=== PATIENT | female | born 1990 | race Caucasian/White ===

== ENCOUNTER → 2018-04-20 14:45 | Outpatient (CLI) | payer OTHER, SELFPAY ==
[2018-04-20] MEDS: Dextrose 5%-Lactated Ringers 1,000 ML 999 ML IV (15:11)
[2018-04-20 15:12] VITALS: BP 108/68; PULSE 92; RESP 16; TEMP 36.2; O2SAT 100
[2018-04-20] MEDS: Ondansetron 4 MG/2 ML Vial IV (15:20)
[2018-04-20] MEDS: proMETHazine 25 MG/ML Syringe 12.5 MG IV (16:01)
== END ==
PROVIDERS: Family Provider Family Medicine; PCP Family Medicine; Referring Provider Nurse Practitioner Women's Health; Visit Provider Nurse Practitioner Women's Health
DX: E86.0 Dehydration (principal)
CPT/HCPCS: 96361; 96374; A4216; J2405

== ENCOUNTER → 2018-05-04 16:54 | Outpatient (CLI) | payer OTHER, SELFPAY ==
[2018-05-04 13:49] VITALS: BMI 26.9
[2018-05-04 20:04] LABS: Chlamydia Trachomatis by PCR Negative (Negative); Neisserai gonorrhoeae by PCR Negative (Negative); Probe Check PASS; Sample Adequacy Control PASS; Specimen Processing Control PASS
[2018-05-06 17:16] LABS: HPV Reflexed? NOT INDICATED
== END ==
PROVIDERS: Family Provider Family Medicine; PCP Family Medicine; Referring Provider Obstetrics & Gynecology; Visit Provider Obstetrics & Gynecology
DX: Z34.90 Encounter for supervision of normal pregnancy, unspecified, unspecified trimester (principal); Z12.4 Encounter for screening for malignant neoplasm of cervix
CPT/HCPCS: 87086; 87088; 87491; 87591; 87624; 88175; G0145

== ENCOUNTER → 2018-05-28 15:47 | Outpatient (CLI) | payer OTHER, SELFPAY ==
[2018-05-04 13:49] VITALS: BMI 26.9
== END ==
PROVIDERS: Family Provider Family Medicine; PCP Family Medicine; Referring Provider Nurse Practitioner Women's Health; Visit Provider Nurse Practitioner Women's Health
DX: N39.0 Urinary tract infection, site not specified (principal)
CPT/HCPCS: 87086; 87088

== ENCOUNTER → 2018-06-05 11:54 | Outpatient (CLI) | payer OTHER, SELFPAY ==
[2018-06-05 11:38] VITALS: BMI 26.9
[2018-06-05 12:58] LABS: Absolute Lymphocyte Count 1.43 X10^3/ul (0.83-4.51); Absolute Neutrophil Count 6.4 X10^3/uL (2.0-7.7); Basophil# 0.02 X10^3/uL; Basophil% 0.2 % (0-1); Eosinophils% 1.2 % (0-5); Hematocrit 36.2 % (37-47); Hemoglobin 12.1 g/dl (12.0-15.0); Lymphocyte # 1.43 X10^3/ul (4.0); Lymphocyte % 16.6 % (19-41); Mean Corp Hgb Conc 33.4 g/gl (32-36); Mean Corpuscular Hgb 29.8 pg (27.0-32.0); Mean Corpuscular Volume 89.2 fL (81-99); Monocyte# 0.69 X10^3/uL; Neutrophil # 6.36 X10^3/uL (2.7-7.7); Neutrophil % 73.7 % (47-70); Platelet Count 207 K/mm3 (150-450); RBC Distribution Width CV 13.8 % (11.6-14.6); RBC Distribution Width SD 45.2 fl (35.1-43.9); Red Blood Count 4.06 M/mm3 (4.2-5.4); White Blood Count 8.6 K/mm3 (4.4-11.0)
[2018-06-05 13:08] LABS: POSITIVE COUNT NO; POSITIVE DIFFERENTIAL NO; POSITIVE MORPHOLOGY NO
[2018-06-05 14:13] LABS: HIV - WCH Non-Reactive (Nonreactive); Rubella IgG 33.6 IU/mL
[2018-06-08 13:43] LABS: HEPATITIS B SURFACE AG Negative (Negative)
[2018-06-12 03:57] LABS: Rapid Plasmin Reagin (RPR) REACTIVE (NONREACTIVE)
== END ==
PROVIDERS: Family Provider Family Medicine; PCP Family Medicine; Referring Provider Obstetrics & Gynecology; Visit Provider Obstetrics & Gynecology
DX: Z34.90 Encounter for supervision of normal pregnancy, unspecified, unspecified trimester (principal)
CPT/HCPCS: 36415; 85025; 86592; 86703; 86762; 86850; 86900; 87340

== ENCOUNTER → 2018-06-22 16:53 | Outpatient (CLI) | payer OTHER, SELFPAY ==
[2018-06-05 11:38] VITALS: BMI 26.9
== END ==
PROVIDERS: Family Provider Family Medicine; PCP Family Medicine; Referring Provider Obstetrics & Gynecology; Visit Provider Obstetrics & Gynecology
DX: O28.9 Unspecified abnormal findings on antenatal screening of mother (principal)
CPT/HCPCS: 36415

== ENCOUNTER → 2018-07-20 | Outpatient (CLI) | payer OTHER, SELFPAY ==
[2018-07-02 14:04] VITALS: BMI 26.9
[2018-07-21 15:51] LABS: Treponema palladium Ab (FTA) Non Reactive (Non Reactive)
[2018-07-28 07:26] LABS: Rapid Plasmin Reagin (RPR) REACTIVE (NONREACTIVE)
== END | disposition home or self-care (01) ==
PROVIDERS: Family Provider Family Medicine; PCP Family Medicine; Referring Provider Obstetrics & Gynecology; Visit Provider Obstetrics & Gynecology
DX: O28.9 Unspecified abnormal findings on antenatal screening of mother (principal); Z3A.00 Weeks of gestation of pregnancy not specified
CPT/HCPCS: 36415; 86592; 86780

== ENCOUNTER 2018-08-14 08:49 | Outpatient (RCR) | payer OTHER, SELFPAY ==
[2018-07-02 14:04] VITALS: BMI 26.9
[2018-07-31 14:05] VITALS: BMI 26.9
== END 2018-08-14 23:59 | disposition home or self-care (01) ==
LOC: NS 08:49
PROVIDERS: Family Provider Family Medicine; PCP Family Medicine; Visit Provider Obstetrics & Gynecology
DX: O26.00 Excessive weight gain in pregnancy, unspecified trimester (principal)
CPT/HCPCS: 97802

== ENCOUNTER → 2018-09-16 | Outpatient (CLI) | payer OTHER, SELFPAY ==
[2018-09-16 14:45] VITALS: BMI 26.9
[2018-09-16 17:39] LABS: Absolute Lymphocyte Count 1.42 X10^3/ul (0.83-4.51); Absolute Neutrophil Count 8.2 X10^3/uL (2.0-7.7); Basophil# 0.01 X10^3/uL; Basophil% 0.1 % (0-1); Eosinophil# 0.07 X10^3/uL; Eosinophils% 0.7 % (0-5); Hemoglobin 10.7 g/dl (12.0-15.0); Lymphocyte # 1.42 X10^3/ul (4.0); Lymphocyte % 13.8 % (19-41); Mean Corp Hgb Conc 32.4 g/gl (32-36); Mean Corpuscular Hgb 27.8 pg (27.0-32.0); Mean Corpuscular Volume 85.7 fL (81-99); Mean Platelet Vol. 10.1 fl (6.2-12.0); Monocyte# 0.44 X10^3/uL; Monocyte% 4.3 % (0-10); Neutrophil # 8.23 X10^3/uL (2.7-7.7); Neutrophil % 80.2 % (47-70); Platelet Count 226 K/mm3 (150-450); RBC Distribution Width CV 14.4 % (11.6-14.6); RBC Distribution Width SD 45.2 fl (35.1-43.9); Red Blood Count 3.85 M/mm3 (4.2-5.4); White Blood Count 10.3 K/mm3 (4.4-11.0)
[2018-09-16 17:40] LABS: POSITIVE COUNT NO; POSITIVE DIFFERENTIAL NO; POSITIVE MORPHOLOGY NO
[2018-09-16 17:49] LABS: Glucose Challenge Gest 1H 50g 160 mg/dL (70-140)
[2018-09-20 13:56] LABS: Treponema palladium Ab (FTA) Non Reactive (Non Reactive)
== END | disposition home or self-care (01) ==
LOC: LAB 15:37
PROVIDERS: Family Provider Family Medicine; PCP Family Medicine; Referring Provider Nurse Practitioner Women's Health; Visit Provider Nurse Practitioner Women's Health
DX: Z34.90 Encounter for supervision of normal pregnancy, unspecified, unspecified trimester (principal); R76.8 Other specified abnormal immunological findings in serum
CPT/HCPCS: 36415; 82950; 85025; 86780

== ENCOUNTER → 2018-09-18 | Outpatient (CLI) | payer OTHER, SELFPAY ==
[2018-09-16 14:45] VITALS: BMI 26.9
[2018-09-18 10:56] LABS: Glucose GTT-Gestation. Fasting 79 mg/dL (<105)
[2018-09-18 13:02] LABS: Glucose GTT-Gestational 1 Hr 152 mg/dL (<190)
[2018-09-18 13:33] LABS: Glucose GTT-Gestational 2 Hr 173 mg/dL (<165)
[2018-09-18 15:12] LABS: Glucose GTT-Gestational 3 Hr 123 L (<145)
== END | disposition home or self-care (01) ==
LOC: LAB 09:58
PROVIDERS: Nurse Practitioner Women's Health; Family Provider Family Medicine; PCP Family Medicine; Referring Provider Obstetrics & Gynecology; Visit Provider Obstetrics & Gynecology
DX: O99.810 Abnormal glucose complicating pregnancy (principal); Z3A.00 Weeks of gestation of pregnancy not specified
CPT/HCPCS: 36415; 82951; 82952

== ENCOUNTER → 2018-11-20 11:19 | Outpatient (CLI) | payer OTHER, SELFPAY ==
[2018-11-20 10:27] VITALS: BMI 26.9
== END ==
PROVIDERS: Family Provider Family Medicine; PCP Family Medicine; Referring Provider Obstetrics & Gynecology; Visit Provider Obstetrics & Gynecology
DX: Z34.93 Encounter for supervision of normal pregnancy, unspecified, third trimester (principal); Z3A.36 36 weeks gestation of pregnancy
CPT/HCPCS: 87081

== ENCOUNTER → 2018-11-27 16:03 | Outpatient (CLI) | payer OTHER, SELFPAY ==
[2018-11-27 15:36] VITALS: BMI 26.9
[2018-11-27 17:12] LABS: Absolute Lymphocyte Count 1.24 X10^3/uL (0.83-4.51); Absolute Neutrophil Count 8.5 X10^3/uL (2.0-7.7); Basophil# 0.02 X10^3/uL; Basophil% 0.2 % (0-1); Eosinophil# 0.08 X10^3/uL; Eosinophils% 0.8 % (0-5); Hematocrit 31.3 % (37-47); Hemoglobin 9.7 g/dL (12.0-15.0); Lymphocyte # 1.24 X10^3/ul (4.0); Lymphocyte % 11.8 % (19-41); Mean Corpuscular Hgb 25.5 pg (27.0-32.0); Mean Corpuscular Volume 82.2 fL (81-99); Mean Platelet Vol. 10.7 fl (6.2-12.0); Monocyte# 0.44 X10^3/uL; Monocyte% 4.2 % (0-10); NRBC Flagged by Analyzer 0 % (0-5); Neutrophil # 8.49 X10^3/uL (2.7-7.7); Neutrophil % 80.9 % (47-70); Platelet Count 222 K/mm3 (150-450); RBC Distribution Width CV 16.1 % (11.6-14.6); RBC Distribution Width SD 48.2 fl (35.1-43.9); Red Blood Count 3.81 M/mm3 (4.2-5.4); White Blood Count 10.5 K/mm3 (4.4-11.0)
[2018-11-27 17:18] LABS: Protein, Urine (Random) 22.6 mg/dL (<11.9); Protein:Creat Ratio 246 mg/g CRE (0-200)
[2018-11-27 17:27] LABS: ALB/GLOB Ratio 0.7 RATIO (0.9-2.4); AST(SGOT) 15 U/L (15-37); Alanine Aminotransfer ALT/SGPT 14 U/L (13-56); Albumin, Serum 2.5 g/dL (3.2-5.0); Alkaline Phosphatase 151 U/L (45-117); Anion Gap 11 (5-15); BUN 6 mg/dL (7-18); BUN/Creat Ratio 8.2 RATIO (10-20); Calcium,Total 8.4 mg/dL (8.5-10.1); Chloride 105 mmol/L (98-107); Creatinine, Serum 0.73 mg/dL (0.55-1.02); EST Glomerular Filtration Rate 102 mL/min (>60); Est Glom Filt Rate - Afr Amer 123 mL/min (>60); Globulin 3.5 g/dL (2.2-4.2); Glucose 123 mg/dL (74-106); Potassium 3.1 mmol/L (3.5-5.1); Sodium Level 142 mmol/L (136-145)
== END ==
PROVIDERS: Family Provider Family Medicine; PCP Family Medicine; Referring Provider Nurse Practitioner Women's Health; Visit Provider Nurse Practitioner Women's Health
DX: O26.00 Excessive weight gain in pregnancy, unspecified trimester (principal); Z34.90 Encounter for supervision of normal pregnancy, unspecified, unspecified trimester; Z3A.00 Weeks of gestation of pregnancy not specified
CPT/HCPCS: 36415; 80053; 82570; 84156; 85025

== ENCOUNTER 2018-12-07 10:05 | Inpatient (IN) | payer OTHER, SELFPAY ==
[2018-11-20 10:27] VITALS: BMI 26.9
[2018-12-01 14:00] VITALS: BMI 26.9
[2018-12-07] VITALS (18 sets, daily range): BP systolic 84–111; BP diastolic 34–63; PULSE 54–100; RESP 14–18; TEMP 36.4–36.7; O2SAT 96–100; BMI 39.3
[2018-12-07] MEDS: Lactated Ringers 1,000 ML 999 ML IV (10:35)
[2018-12-07 10:56] LABS: Absolute Neutrophil Count 7.2 X10^3/uL (2.0-7.7); Basophil# 0.02 X10^3/uL; Basophil% 0.2 % (0-1); Eosinophil# 0.07 X10^3/uL; Eosinophils% 0.7 % (0-5); Hematocrit 32.1 % (37-47); Hemoglobin 9.7 g/dL (12.0-15.0); Lymphocyte % 13.8 % (19-41); Mean Corp Hgb Conc 30.2 g/dL (32-36); Mean Corpuscular Hgb 24.7 pg (27.0-32.0); Mean Corpuscular Volume 81.9 fL (81-99); Mean Platelet Vol. 10.3 fl (6.2-12.0); Monocyte# 0.68 X10^3/uL; Monocyte% 7.2 % (0-10); NRBC Flagged by Analyzer 0 % (0-5); Neutrophil # 7.18 X10^3/uL (2.7-7.7); Neutrophil % 76.3 % (47-70); Platelet Count 213 K/mm3 (150-450); RBC Distribution Width CV 16.2 % (11.6-14.6); RBC Distribution Width SD 47.6 fl (35.1-43.9); Red Blood Count 3.92 M/mm3 (4.2-5.4); White Blood Count 9.4 K/mm3 (4.4-11.0)
[2018-12-07] MEDS: Lactated Ringers 1,000 ML 150 ML IV (11:36)
[2018-12-07] MEDS: Sodium Citrate/Citric Acid 30 ML UDC PO (11:52)
[2018-12-07] MEDS: Cefazolin 2 GM in 0.9% Normal Saline 100 ML IV (11:56)
--- NOTE | 2018-12-07 12:16 | HP.PCM_ITS ---
- Problem List (1) Abnormal test Status: Acute Comment: false positive RPR. Needs APL testing. Repeat RPR and treponemal antibody testing negative (2) Anemia affecting , antepartum Status: Acute (3) Biological false positive RPR test Status: Acute Comment: Repeat RPR and FTA negative. 2nd FTA negative (09/16) (4) Breech presentation of fetus Status: Acute Qualifiers: Comment: declines ECV plan LTCS and BL Salpingectomy (5) Excessive weight gain affecting Status: Acute (6) Status: Acute Qualifiers: Comment: carrier, genetic, and ntd screening declined. 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 Is patient in pain?: No Allergies sulfamethoxazole [From Bactrim] Allergy (Mild, Verified 12/01/18 13:59) face swelling, itchy trimethoprim [From Bactrim] Allergy (Mild, Verified 12/01/18 13:59) face swelling, itchy latex Allergy (Verified 12/01/18 13:59) Hives metronidazole [From Flagyl] Allergy (Verified 12/01/18 13:59) Hives nickel Allergy (Verified 12/01/18 13:59) Hives Medications meclizine 25 mg tablet 25 mg PO Q6H #90 tab 04/16/18 [Rx Confirmed 12/01/18] Cholecalciferol (Vitamin D3) [Vitamin D3] 2,000 unit PO 04/20/18 [History Confirmed 12/01/18] metoclopramide 10 mg tablet 10 mg PO Q6H #60 tab 04/22/18 [Rx Confirmed 12/01/18] ondansetron 4 mg disintegrating tablet 4 mg PO Q4H PRN #60 tab 04/22/18 [Rx Confirmed 12/01/18] vitamin#30 30 mg iron-10 mg iron-folic acid 1 mg-omg3 capsule cap PO cap 05/04/18 [History Confirmed 12/01/18] ferrous sulfate 325 mg (65 mg iron) tablet 325 mg PO DAILY 10/16/18 [History Confirmed 12/01/18] Last Menstral Period: 03/08/18 Zika: Zika virus screening: Negative : No PFSH PFSH Medical History Thyroid cyst (Acute) Surgical History [facility] teeth extracted (Acute) Family History Grandfather Cancer Lung, Brain Father Heart disease Mother Arthritis Social History Smoking Status: Never smoker second hand exposure: No alcohol intake: never substance use type: does not use caffeine: No what type of physical activity do you participate in: running frequency: 1-2 times per week seatbelt use: always do you feel safe at home: Yes additional social history: - [employer] 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 Date Name GA/Weeks Outcome Route Bth Weight Gen Labor Lgth Anesthesia Del [facility] Provider FOB 11/13/13 Jean 40 live - full term 8 lbs 12 oz Male 15 hours epidural [facility] Dr. Nathan Rodgers 05/04/18 Vinay 40 live - full term 8 lbs 11 oz Male 17 hours epidural [facility] Martha Delivery Date: 11/13/13 On 10/08/17 @ 11:06 Prabha Rodriguez Polyhydramnios and PUPS during . No issues during delivery (had second degree tear. Delivery Date: 05/04/18 On 05/04/18 @ 13:29 Margaret Miranda Polyhydramnios and kidney stone issues. No issues during delivery (2nd degree tear). HPI 38 WEEK OB: Details: RORY GHOSH is a 28 year old who presents for routine OB visit. OB Visit DEXTER Calculator Estimated Delivery Date Method Current WG Current Estimate 12/13/18 LMP (Certain) 38w 2d Expected Delivery Route/Plan labor support person: Vishal pain management: epidural cut cord/dad catch: yes : yes PP control planned: BTO if has c section discussed possible routes of delivery and associated risks: [] special requests: [] Specific Issue/Plans flu vaccine: [] tdap vaccine: given rhogam: na LARC form signed: declines Problem list reviewed and updated with the most current plan of care details and appropriate orders placed. Relevant counseling for the gestational age provided. Continue routine care and follow up unless otherwise noted in visit notes/problem list details Initial Weight: 177 lb Date EGA Weight BP Urine Prot Glucose FHR FuHt Pres Mov CTX Dilation Effaced St Visit Note Effaced 06/05/18 12w 5d 190 lb 4 oz (+13 lb 4 oz) 104/62 157 no vb lof decreased energy still 07/02/18 16w 4d 199 lb 4 oz (+22 lb 4 oz) 120/72 Negative Negative 150 no vb cramping feeling less nauseated. discussed weigh tloss recommend nutrition consult. 07/31/18 20w 5d 203 lb 2 oz (+26 lb 2 oz) 100/68 Negative Negative 148 Active No VB, LOF. Seen ED earlier in week for vertigo, saw ENT yesterday and improved. 08/28/18 24w 5d 211 lb 4 oz (+34 lb 4 oz) 102/68 Negative Negative 145 25 Active absent no vb lof good fm no regular ctx, will draw treponemal titer next visit, neg apl workup 09/16/18 27w 3d 210 lb 4 oz (+33 lb 4 oz) 106/70 Negative Negative 147 28 Active absent No VB, LOF. Doing well 10/16/18 31w 5d 219 lb 8 oz (+42 lb 8 oz) 118/72 Negative Negative 145 32 Active absent no vb lof good fm no regular ctx still hving hip pain, recommend physical therapy consult 10/28/18 33w 3d 220 lb 6 oz (+43 lb 6 oz) 114/72 Negative Negative 147 33 Breech Active absent NO VB, LOF, NO VB, LOF, headache, vision changes. c/o ^ edema feet. None hands, face. 11/11/18 35w 3d 222 lb 8 oz (+45 lb 8 oz) 100/64 Negative Negative 148 35 Breech Active absent Has 1cm abscess left lower back. No fever. Also still seeing chiropractor for hip and back pain. Good FM. No VB, LOF 11/20/18 36w 5d 224 lb (+47 lb) 104/80 Negative Negative 140 37 Breech Active absent no vb lof 11/27/18 37w 5d 227 lb 2 oz (+50 lb 2 oz) 110/80 Negative Negative 143 38 Breech Active absent 0.5 -4 Headache each evening. None during da y. More edema lower legs. Good Fm. No VB, LOF Visit Notes Visit Date: 11/27/18 ??Headache each evening. None during day. More edema lower legs. Good Fm. No VB, LOF ??ANDREEA Parisi on 11/27/18 Visit Date: 11/20/18 ??no vb lof ??Margaret Miranda MD on 11/20/18 Visit Date: 11/11/18 ??Has 1cm abscess left lower back. No fever. Also still seeing chiropractor for hip and back pain. Good FM. No VB, LOF ??ANDREEA Parisi on 11/11/18 Visit Date: 10/28/18 ??NO VB, LOF, headache, vision changes. c/o ^ edema feet. None hands, face. ??ANDREEA Parisi on 10/28/18 ??NO VB, LOF, ??ANDREEA Parisi on 10/28/18 Visit Date: 10/16/18 ??no vb lof good fm no regular ctx still hving hip pain, recommend physical therapy consult ??Margaret Miranda MD on 10/16/18 Visit Date: 09/16/18 ??No VB, LOF. Doing well ??ANDREEA Parisi on 09/16/18 Visit Date: 08/28/18 ??no vb lof good fm no regular ctx, will draw treponemal titer next visit, neg apl workup ??Margaret Miranda MD on 08/28/18 Visit Date: 07/31/18 ??No VB, LOF. Seen ED earlier in week for vertigo, saw ENT yesterday and improved. ??Geeta Rangel NP-Roc on 07/31/18 Visit Date: 07/02/18 ??no vb cramping feeling less nauseated. discussed weigh tloss recommend nutrition consult. ??Margaret Miranda MD on 07/02/18 Visit Date: 06/05/18 ??no vb lof decreased energy still ??Margaret Miranda MD on 06/05/18 ROS: General: negative Information Technology Specialist: see hpi GI: otherwise negative unless documented in hpi all others reviewed and negative PE: VSSAF General: alert oriented comfortable HEENT: no thyromegaly, lymphadenopathy CV: RRR Resp: nl inspiratory effort Abdn: soft gravid NTTP approrpriate GA Ext: minimal edema ACOG First Trimester First Trimester: Discussed Diagnostics Diagnostics Labs Hct 31.3 % (37-47) L 11/27/18 Hgb 9.7 g/dL (12.0-15.0) L 11/27/18 Glucose 1 Hr 50 gm 160 mg/dL (70-140) H 09/16/18 Miscellaneous Test Cancelled 11/27/18 Diagnostics Gest Glucose Tolerance MG/DL 09/18/18 Glucose 1 Hr 50 gm 160 mg/dL (70-140) H 09/16/18 Hgb 9.7 g/dL (12.0-15.0) L 11/27/18 Hct 31.3 % (37-47) L 11/27/18 Details: HIV: Urine Culture: Sequential Screen: NIPT Screen: Assessment & Plan Problems 1. Anemia affecting , antepartum O99.019 2. Biological false positive RPR test R76.8 3. Abnormal test O28.9 4. 38 weeks gestation of Z3A.38 5. Thyroid nodule E04.1 6. Encounter for supervision of other normal in third trimester Z34.83 7. Excessive weight gain affecting O26.00 plan RLTCS bilateral salpingectomy Coding Diagnoses Anemia affecting , antepartum O99.019 Biological false positive RPR test R76.8 Abnormal test O28.9 38 weeks gestation of Z3A.38 ??Weeks of gestation: 38 weeks Thyroid nodule E04.1 Encounter for supervision of other normal in third trimester Z34.83 ??Normal : other normal ??Trimester: third trimester Excessive weight gain affecting O26.00 UPDATE- I have seen the patient and performed any clinically relevant updates to the history and physical exam. Margaret Miranda MD
--- NOTE | 2018-12-07 13:03 | PCM.OPRPT ---
Problem List (1) Abnormal test Status: Acute Comment: false positive RPR. Needs APL testing. Repeat RPR and treponemal antibody testing negative (2) Anemia affecting , antepartum Status: Acute (3) Biological false positive RPR test Status: Acute Comment: Repeat RPR and FTA negative. 2nd FTA negative (09/16) (4) Breech presentation of fetus Status: Acute Qualifiers: Comment: declines ECV plan LTCS and BL Salpingectomy (5) Excessive weight gain affecting Status: Acute (6) Status: Acute Qualifiers: Comment: carrier, genetic, and ntd screening declined. 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 Type of Anesthesia:: Spinal Date of Procedure: 12/07/18 Pre-Operative Diagnosis: breech and desires sterilization Post-Operative Diagnosis: same Indications for : Desires elective sterilization, Breech Amniotic Membrane Rupture Type: Artificial Amniotic Fluid Description: Clear Placenta Disposition: [facility] Specimen(s) sent to pathology: tubes Drain: Marinelli to straight drain Cord Entanglement: Around neck x 1, tight Esitmated Blood Loss (ml): 800 Gender: Female Delayed cord clamping: Yes Pt instructed on risks of surgery: Bleeding, Anesthesia Risks, Infection, Permanency, Injury to surrounding structure(s) including bowel and bladder Complications: None - Admit VTE Documentation VTE Present on Admission: No VTE Mechan Device Prophylaxis: SCD's Multi Select Codes - Urinary/Genital Urinary/Genital CPT Codes: 64380 C/S+TL - salpingectomy
[2018-12-07] MEDS: Oxytocin 30 units/NS 500 ml 30 UNITS/500 ML IV.SOLN 167 UNITS IV (13:10)
--- NOTE | 2018-12-07 13:21 | FALS_PTH ---
PATIENT: RORY GHOSH LOC: [facility] U#:[id number] AGE/SX: 28/F ROOM: WP007 RE12/07/[address]: Dr. Margaret Miranda MD : 1990 BED: 1 DIS: 12/10/2018 SPEC #: [id number] RECD: 12/07/18 15:09 STATUS: KENNETH BURKE #: [id number] CIRILO: 12/07/18 13:[address]: Margaret Miranda DEPT: SURGICAL PATHOLOGY RECD BY: Sofy Bliss ENTERED: 12/08/18 09:01 SP TYPE: FALL TUBES OTHR DR: Dr. Misa Marino, Tissues: Fallopian tube Procedures: Surgery Specimen Level II HEADER OPERATION: Primary section PRE-OP DIAGNOSIS: Sterilization TISSUE SUBMITTED: Fallopian tubes, suture in right tube MICROSCOPIC DIAGNOSIS Right and left fallopian tubes, bilateral salpingectomies: Complete segments of fallopian tubes Benign paratubal cysts. AM:emory 12/09/18 MICROSCOPIC DESCRIPTION Slides are reviewed. GROSS DESCRIPTION Received is one container labeled with the patient's name and designated bilateral fallopian tubes, suture in right. The specimen consists of two fallopian tubes, one contains a suture, and the other one does not. The average length is 6.5 cm and average diameter is 1 cm. Both fallopian tubes have normal fimbriated ends. The fimbriated end near the fallopian tube with suture contains a cyst measuring 1 cm and containing clear fluid. The other fallopian tube contains a cyst that measures 0.8 cm. Moth Exterminator sections are submitted in two cassettes as follows: 1 - fallopian tube with suture, 2 - the other fallopian tube. / AM:emory 12/08/18 TC:[address] [facility]: [id number] x2
[2018-12-07] MEDS: Nalbuphine 10 MG/ML Ampul 5 MG IV ×2 (14:49→15:00)
[2018-12-07 15:08] LABS: Pathology Specimen OB SEE PATHOLOGY REPORT
[2018-12-07] MEDS: Lactated Ringers 1,000 ML 100 ML IV (16:10)
[2018-12-07] MEDS: Acetaminophen 500 MG Tablet 1000 MG PO (17:35)
[2018-12-07] MEDS: Ketorolac 30 MG/ML Syringe IV ×2 (18:35→23:56)
--- NOTE | 2018-12-07 19:53 | NURSING ---
Patient sitting up in chair. Denies dizziness or lightheadedness.
--- NOTE | 2018-12-07 19:55 | NURSING ---
Urinary catheter present. WNL.
[2018-12-07] MEDS: DiphenhydrAMINE 25 MG Capsule PO (21:25)
--- NOTE | 2018-12-07 21:55 | NURSING ---
Patient ambulated back to bed. Pad and underwear changed. Resting comfortably in bed. Call light in reach. Denies further needs at this time.
[2018-12-07] MEDS: 0.9% Saline Lock 10 ML Syringe IV (23:56)
[2018-12-07] MEDS: Enoxaparin 40 MG/0.4 ML Syringe SC (23:56)
[2018-12-08] VITALS (9 sets, daily range): BP systolic 91–102; BP diastolic 42–62; PULSE 68–94; RESP 16–20; TEMP 36.5–36.8; O2SAT 96–99
[2018-12-08 05:43] LABS: Hematocrit 27.5 % (37-47); Hemoglobin 8.4 g/dL (12.0-15.0); Mean Corp Hgb Conc 30.5 g/dL (32-36); Mean Corpuscular Hgb 24.8 pg (27.0-32.0); Mean Corpuscular Volume 81.1 fL (81-99); Mean Platelet Vol. 10.9 fl (6.2-12.0); Platelet Count 191 K/mm3 (150-450); RBC Distribution Width CV 16.4 % (11.6-14.6); Red Blood Count 3.39 M/mm3 (4.2-5.4); White Blood Count 9.8 K/mm3 (4.4-11.0)
[2018-12-08] MEDS: Ketorolac 30 MG/ML Syringe IV ×4 (06:03→23:35)
[2018-12-08] MEDS: 0.9% Saline Lock 10 ML Syringe IV ×3 (06:03→23:35)
[2018-12-08] MEDS: Senna/Docusate Sodium 1 Tablet PO (10:24)
[2018-12-08] MEDS: Acetaminophen 500 MG Tablet 1000 MG PO ×2 (13:00→20:41)
--- NOTE | 2018-12-08 17:05 | NURSING ---
patient asymptomatic, denies dizziness or feeling light headed
[2018-12-08] MEDS: Enoxaparin 40 MG/0.4 ML Syringe SC (22:07)
[2018-12-09 02:50] VITALS: BP 110/43; PULSE 75; RESP 16; TEMP 36.5; O2SAT 96
--- NOTE | 2018-12-09 05:13 | PCM.PN.OB ---
Subjective: late entry- ptaient seen 12/08 at 800 doing well no complaints pain controlled no CP SOB N V ambulating well tolerating po lochia moderate, going well - Physical Exam General: Alert, Oriented x3 Vital Signs Temp Pulse Resp BP Pulse Ox 97.7 F L 75 16 110/43 L 96 12/09/18 02:50 12/09/18 02:50 12/09/18 02:50 12/09/18 02:50 12/09/18 02:50 Oxygen Delivery Method Room Air Weight: 229 lb 4.492 oz Body Mass Index (BMI) 39.3 Intake and Output for Last 24 Hours 12/07/18 12/08/18 12/09/18 23:59 23:59 23:59 Intake Total 3913.33 / 3913.33 Output Total 2400 / 2400 2600 / 2600 Balance 1513.33 / 1513.33 -2600 / -2600 Laboratory Tests Past 24 Hrs 12/08/18 05:28 WBC 9.8 RBC 3.39 L Hgb 8.4 L Hct 27.5 L MCV 81.1 MCH 24.8 L MCHC 30.5 L RDW Std Deviation 48.0 H RDW Coeff of Chanel 16.4 H Plt Count 191 MPV 10.9 Medical Necessity - Tobacco Use Smoking Status: Never smoker Assessment/Plan All Active Problems (Last Reviewed 12/01/18 @ 13:59 by Vaishali Thomas) Breech presentation of fetus (Acute) Anemia affecting , antepartum (Acute) Biological false positive RPR test (Acute) Excessive weight gain affecting (Acute) Abnormal test (Acute) (Acute) Supervision of normal (Acute) Thyroid nodule (Acute) Abnormal uterine bleeding (Resolved) s/p LTCS PPD # 1 1. routine post care 2. breast feeding- support given 3. rh positive 4. rubella immune
[2018-12-09] MEDS: 0.9% Saline Lock 10 ML Syringe IV ×2 (06:59→11:50)
[2018-12-09] MEDS: Ketorolac 30 MG/ML Syringe IV (06:59)
[2018-12-09] MEDS: Acetaminophen 500 MG Tablet 1000 MG PO ×2 (07:15→18:22)
--- NOTE | 2018-12-09 07:56 | PCM.PN.OB ---
Subjective: doing well no complaints pain somewhat controlled no CP SOB N V ambulating well tolerating po lochia moderate, going well - Physical Exam General: Alert, Oriented x3 Abdomen: Soft, Non-Distended, - - FF below U. Dressing dry and intact. Vital Signs Temp Pulse Resp BP Pulse Ox 97.7 F L 75 16 110/43 L 96 12/09/18 02:50 12/09/18 02:50 12/09/18 02:50 12/09/18 02:50 12/09/18 02:50 Oxygen Delivery Method Room Air Weight: 229 lb 4.492 oz Body Mass Index (BMI) 39.3 Intake and Output for Last 24 Hours 12/07/18 12/08/18 12/09/18 23:59 23:59 23:59 Intake Total 3913.33 / 3913.33 Output Total 2400 / 2400 2600 / 2600 Balance 1513.33 / 1513.33 -2600 / -2600 Medical Necessity - Tobacco Use Smoking Status: Never smoker Assessment/Plan All Active Problems (Last Reviewed 12/01/18 @ 13:59 by Vaishali Thomas) Breech presentation of fetus (Acute) Anemia affecting , antepartum (Acute) Biological false positive RPR test (Acute) Excessive weight gain affecting (Acute) Abnormal test (Acute) (Acute) Supervision of normal (Acute) Thyroid nodule (Acute) Abnormal uterine bleeding (Resolved) s/p LTCS PPD # 2 1. routine post care 2. breast feeding- support given 3. rh positive 4. rubella immune 5. Encouraged to continue ambulation, pain med to control discomfort 6. Home tomorrow
[2018-12-09 08:00] VITALS: BP 101/48; PULSE 84; RESP 16; TEMP 36.8; O2SAT 98
[2018-12-09] MEDS: oxyCODONE 5 MG Tablet PO ×2 (08:45→13:41)
--- NOTE | 2018-12-09 08:50 | NURSING ---
THis nurse directly observed the med administration of oxycodone by Stephanie Morris, student nurse.
[2018-12-09] MEDS: Senna/Docusate Sodium 1 Tablet PO (11:50)
[2018-12-09] MEDS: Naproxen 250 MG Tablet PO ×2 (11:58→20:24)
[2018-12-09 13:32] VITALS: BP 96/51; PULSE 76; RESP 16; TEMP 36.7; O2SAT 97
--- NOTE | 2018-12-09 15:09 | NURSING ---
This nursing tech reviewed the documentation completed by Stephanie Bui, student nurse.
[2018-12-09 20:27] VITALS: BP 100/57; PULSE 84; RESP 16; TEMP 36.4; O2SAT 95
--- NOTE | 2018-12-09 22:01 | DCINST_ITS ---
Discharge Diet: No Restrictions Discharge Activity: May Not Drive - for 2 weeks, May not drive while taking narcotic pain medications., May Shower, May Take a Tub Bath - in 7 days May resume sexual activity in: 4-6 weeks Lifting Restrictions: 20 pounds Additional Activity Instructions:: Nothing in the vagina for 4-6 weeks. You may return to work/school in 6 weeks. Call your doctor if your incision/area has: Continuous Slow Oozing, Sudden Increased Bleeding, Increased Pain/ Swelling, Increased Redness, Foul Smelling Discharge Call your doctor if you observe: Fever of 101 or Higher, Using more than one pad per hour - for 2 hours Suture Line Care: Avoid Pulling/Pushing, Avoid Pinching/Bending Cleanse incision/area with: Keep Dressing Clean & Dry Additional Instructions: If you experience any of the following, contact your healthcare provider. * Bleeding that soaks a pad every hour for 2 hours * Fever 100.4 or higher * Unrelieved incision or abdominal pain * Swelling, redness, discharge or bleeding from your incision or episiotomy site * Your incision begins to separate * Problems urinating (including inability to urinate or burning while urinating). * Visual changes * Severe headache * Flu-like symptoms * Pain or redness in one of both of your breasts * Pain, warmth, tenderness or swelling in your legs, especially the calf area * Frequent nausea and vomiting * Symptoms of depression or anxiety If you experience any of the following, call 911 or go to the nearest Emergency Room. * Chest pain * Problems breathing * Seizure activity * Partial or complete paralysis of a body part, slurred speech, weakness or drooping of the face, or a sudden inability to walk or hold your balance Allergies/Adverse Reactions: Allergies sulfamethoxazole [From Bactrim] Allergy (Mild, Verified 12/07/18 10:19) face swelling, itchy trimethoprim [From Bactrim] Allergy (Mild, Verified 12/07/18 10:19) face swelling, itchy latex Allergy (Verified 12/07/18 10:19) Hives metronidazole [From Flagyl] Allergy (Verified 12/07/18 10:19) Hives nickel Allergy (Verified 12/07/18 10:19) Hives Medications to take at Discharge vitamin#30 30 mg iron-10 mg iron-folic acid 1 mg-omg3 capsule 1 cap PO DAILY cap 05/04/18 ferrous sulfate 325 mg (65 mg iron) tablet 325 mg PO DAILY 10/16/18 Naproxen [Naprosyn] 250 - 500 mg PO Q8H PRN PRN #30 tab 12/09/18 Oxycodone HCl/Acetaminophen [Percocet 5-325] 1 - 2 tablet PO Q4H PRN PRN 7 Days #28 tablet 12/09/18 The following prescriptions were given: Naproxen [Naprosyn] 250 - 500 mg PO Q8H PRN PRN #30 tab PRN Reason: MILD PAIN Transmission Status: Pending to [facility] Oxycodone HCl/Acetaminophen [Percocet 5-325] 1 - 2 tablet PO Q4H PRN PRN 7 Days #28 tablet PRN Reason: Moderate-Severe pain Transmission Status: Sent to [facility] Follow-Up: Call to make an appointment with your doctor for an incision check in 1-2 weeks. You will also need a 6 week post- follow up appointment. Test results from this visit will be discussed in further detail at your follow- up appointment, if applicable. Please Follow Up With: Margaret Miranda MD - Call to make an appointment for an incision check in 1-2 [phone] When: You will need a post- check in 6 weeks. Primary Care Physician: Misa Marino [Primary Care Provider] -
[2018-12-09] MEDS: Enoxaparin 40 MG/0.4 ML Syringe SC (22:35)
[2018-12-10 01:40] VITALS: BP 101/44; PULSE 83; RESP 16; TEMP 36.9; O2SAT 97
[2018-12-10] MEDS: Acetaminophen 500 MG Tablet 1000 MG PO ×2 (03:23→12:53)
[2018-12-10 07:26] VITALS: BP 91/49; PULSE 88; RESP 16; O2SAT 95
--- NOTE | 2018-12-10 07:32 | NURSING ---
At shift report the pt. reported to this RN that when she woke up at 0645 she noticed a halo of light in her left eye. She stated that she has a history of speckled vision and vision changes during . Denies history of migraines. This RN performed a vital signs check and all vital signs WNL. Pt. has a low baseline blood pressure. Denies nausea, dizziness, and headache.
[2018-12-10 08:00] VITALS: TEMP 36.3
[2018-12-10] MEDS: Senna/Docusate Sodium 1 Tablet PO (08:27)
[2018-12-10] MEDS: Naproxen 250 MG Tablet PO (08:28)
--- NOTE | 2018-12-10 11:29 | PCM.PN.OB ---
Subjective: doing well no complaints pain controlled no CP SOB N V ambulating well tolerating po lochia moderate, going well - Physical Exam General: Alert, Oriented x3 Vital Signs Temp Pulse Resp BP Pulse Ox 97.3 F L 88 16 91/49 L 95 12/10/18 08:00 12/10/18 07:26 12/10/18 07:26 12/10/18 07:26 12/10/18 07:26 Oxygen Delivery Method Room Air Weight: 229 lb 4.492 oz Body Mass Index (BMI) 39.3 Intake and Output for Last 24 Hours 12/08/18 12/09/18 12/10/18 23:59 23:59 23:59 Output Total 2600 / 2600 Balance -2600 / -2600 Medical Necessity - Tobacco Use Smoking Status: Never smoker Assessment/Plan All Active Problems (Last Reviewed 12/01/18 @ 13:59 by Vaishali Thomas) Breech presentation of fetus (Acute) Anemia affecting , antepartum (Acute) Biological false positive RPR test (Acute) Excessive weight gain affecting (Acute) Abnormal test (Acute) (Acute) Supervision of normal (Acute) Thyroid nodule (Acute) Abnormal uterine bleeding (Resolved) s/p LTCS PPD # 3 1. routine post care 2. breast feeding- support given 3. rh positive 4. rubella immune
--- NOTE | 2018-12-10 11:29 | PCM.DC.SUM ---
Discharge Date and Diagnosis Date of Admission: 12/07/18 Date of Discharge: 12/10/18 Hospital Course and Treatment Operations: - - ltcs and bilateral salpingectomy Summary of Care Provided: The patient is a 28 year old F patient underwent a section and had a routine recovery with a return of bowel and bladder function, was ambulating, voiding, and tolerating po, and was stable for discharge to home on POD 3. - Physical Exam Vital Signs Temp Pulse Resp BP Pulse Ox 97.3 F L 88 16 91/49 L 95 12/10/18 08:00 12/10/18 07:26 12/10/18 07:26 12/10/18 07:26 12/10/18 07:26 Oxygen Delivery Method Room Air Weight: 229 lb 4.492 oz Body Mass Index (BMI) 39.3 Intake and Output for Last 24 Hours 12/08/18 12/09/18 12/10/18 23:59 23:59 23:59 Output Total 2600 / 2600 Balance -2600 / -2600 Discharge Diet: No Restrictions Discharge Activity: May Not Drive - for 2 weeks, May not drive while taking narcotic pain medications., May Shower, May Take a Tub Bath - in 7 days May resume sexual activity in: 4-6 weeks Additional Activity Instructions:: Nothing in the vagina for 4-6 weeks. You may return to work/school in 6 weeks. Call your doctor if your incision/area has: Continuous Slow Oozing, Sudden Increased Bleeding, Increased Pain/ Swelling, Increased Redness, Foul Smelling Discharge Call your doctor if you observe: Fever of 101 or Higher, Using more than one pad per hour - for 2 hours Suture Line Care: Avoid Pulling/Pushing, Avoid Pinching/Bending Cleanse incision/area with: Keep Dressing Clean & Dry Home Medications: Medications to take at Discharge vitamin#30 30 mg iron-10 mg iron-folic acid 1 mg-omg3 capsule 1 cap PO DAILY cap 05/04/18 ferrous sulfate 325 mg (65 mg iron) tablet 325 mg PO DAILY 10/16/18 Naproxen [Naprosyn] 250 - 500 mg PO Q8H PRN PRN #30 tab 12/09/18 Oxycodone HCl/Acetaminophen [Percocet 5-325] 1 - 2 tab PO Q4H PRN PRN 7 Days #28 tab 12/09/18 Following Prescrptions Were Given to Patient: Naproxen [Naprosyn] 250 - 500 mg PO Q8H PRN PRN #30 tab PRN Reason: MILD PAIN Transmission Status: Received by [facility] Oxycodone HCl/Acetaminophen [Percocet 5-325] 1 - 2 tab PO Q4H PRN PRN 7 Days #28 tab PRN Reason: Moderate-Severe pain Transmission Status: Received by [facility] Primary Care Physician: Misa Marino [Primary Care Provider] - Please Follow Up With: Margaret Miranda MD - Call to make an appointment for an incision check in 1-2 [phone] When: You will need a post- check in 6 weeks. Medical Necessity - Tobacco Use Smoking Status: Never smoker Meaningful Use Info Meaningful Use Diagnoses (Choose all that apply): None applicable
[2018-12-10 12:50] VITALS: BP 114/64; PULSE 78; RESP 16; TEMP 36.6; O2SAT 97
== END 2018-12-10 13:20 | disposition home or self-care (01) | DRG 785 ==
PROVIDERS: Admitting Provider Obstetrics & Gynecology; Family Provider Family Medicine; PCP Family Medicine; Referring Provider Obstetrics & Gynecology; Visit Provider Obstetrics & Gynecology
PROC: 10D00Z1 Extraction of Products of Conception, Low, Open Approach (ICD-10-PCS; CPT 59514; principal; 2018-12-07 11:45)
DX: O32.1XX0 Maternal care for breech presentation, not applicable or unspecified (principal); Z3A.39 39 weeks gestation of pregnancy; Z37.0 Single live birth; Z30.2 Encounter for sterilization; O69.1XX0 Labor and delivery complicated by cord around neck, with compression, not applicable or unspecified; O26.03 Excessive weight gain in pregnancy, third trimester; E04.1 Nontoxic single thyroid nodule; O99.284 Endocrine, nutritional and metabolic diseases complicating childbirth; D64.9 Anemia, unspecified; O99.02 Anemia complicating childbirth
CPT/HCPCS: 36415; 76815; 85025; 85027; 86850; 86900; 86901; 88302; 99218; J7120; A4216; G0378; J2405

== ENCOUNTER → 2018-12-17 13:00 | Outpatient (CLI) | payer OTHER, SELFPAY ==
[2018-12-07 10:19] VITALS: BMI 39.3
== END ==
PROVIDERS: Family Provider Family Medicine; PCP Family Medicine; Visit Provider Registered Nurse Lactation Consultant
DX: Z00.00 Encounter for general adult medical examination without abnormal findings (principal)
CPT/HCPCS: 96152

== ENCOUNTER 2020-01-14 20:06 | Emergency (ER) | payer MEDICAID, SELFPAY ==
[2019-01-14 13:22] VITALS: BMI 39.3
[2020-01-14 20:07] VITALS: BP 119/71; PULSE 90; RESP 18; TEMP 35.9; BMI 31.9
--- NOTE | 2020-01-14 21:08 | CT_ITS ---
STUDY: CT ABDOMEN AND PELVIS WITH CONTRAST REASON FOR EXAM: Female, 29 years old. RLQ PAIN SINCE THIS AM. RADIATION DOSAGE (If Supplied By Facility): CTDIvol = ( 12.345 ) mGy, DLP = ( 907.00 ) mGycm TECHNIQUE: Transaxial images were obtained from the dome of the diaphragm to the symphysis pubis without oral contrast. IV 100mL Isovue-370 was administered. Sagittal and coronal images were reconstructed. Individualized dose optimization techniques were used for this CT. COMPARISON: None. FINDINGS: The visualized lung bases are unremarkable. The visualized portions of the heart are within normal limits. Normal liver. Gallbladder not visualized consistent with cholecystectomy.. Normal spleen. Normal pancreas. Normal bilateral adrenal glands. Normal right kidney. Normal left kidney. Normal visualized stomach. Normal small intestine. Normal colon. The appendix is visualized and appears normal. Normal abdominal aorta. Normal inferior vena cava. Normal retroperitoneum. Incompletely distended thick-walled bladder likely of no significance Small right ovarian cyst measuring approximately 1.7 x 1.65 cm with trace of fluid in the cul-de-sac which may be consistent with recent ovulation. Normal abdominal wall. Normal osseous structures. CT/Abdomen/Pelvis W IV Cont ONLY IMPRESSION: Nonvisualization of the gallbladder which may be consistent with prior cholecystectomy. No evidence for acute appendicitis. Small right ovarian cyst and trace of fluid in the cul-de-sac possibly due to ovulation. Incompletely distended thick-walled bladder of uncertain clinical significance although may be consistent with cystitis. Clinical correlation recommended Electronically Signed: Erich Beach MD at 22:00 EST , Service support ,
[2020-01-14 21:18] LABS: Absolute Lymphocyte Count 1.92 X10^3/uL (0.83-4.51); Absolute Neutrophil Count 4.9 X10^3/uL (2.0-7.7); Basophil# 0.04 X10^3/uL; Basophil% 0.5 % (0-1); Eosinophils% 1.3 % (0-5); Hematocrit 41.8 % (37-47); Hemoglobin 13.5 g/dL (12.0-15.0); Lymphocyte # 1.92 X10^3/ul (4.0); Lymphocyte % 25.4 % (19-41); Mean Corp Hgb Conc 32.3 g/dL (32-36); Mean Corpuscular Hgb 29.2 pg (27.0-32.0); Mean Corpuscular Volume 90.3 fL (81-99); Monocyte# 0.52 X10^3/uL; Monocyte% 6.9 % (0-10); NRBC Flagged by Analyzer 0 % (0-5); Neutrophil # 4.94 X10^3/uL (2.7-7.7); Neutrophil % 65.5 % (47-70); Platelet Count 220 K/mm3 (150-450); RBC Distribution Width CV 12.4 % (11.6-14.6); RBC Distribution Width SD 41.1 fl (35.1-43.9); Red Blood Count 4.63 M/mm3 (4.2-5.4); White Blood Count 7.6 K/mm3 (4.4-11.0)
[2020-01-14 21:34] LABS: Bacteria 0 SEEN /hpf (None Seen); Mucous, Urine 0 SEEN /hpf (<or=2+); Red Blood Cells-Urine 0 SEEN /hpf (0-5); White Blood Cells 0 SEEN /hpf (0-5)
[2020-01-14 21:44] LABS: ALB/GLOB Ratio 1.3 RATIO (0.9-2.4); AST(SGOT) 13 U/L (15-37); Alanine Aminotransfer ALT/SGPT 18 U/L (13-56); Alkaline Phosphatase 114 U/L (45-117); Anion Gap 7 (5-15); BUN 13 mg/dL (7-18); BUN/Creat Ratio 15.3 RATIO (10-20); Calcium,Total 9.2 mg/dL (8.5-10.1); Chloride 106 mmol/L (98-107); Creatinine, Serum 0.85 mg/dL (0.55-1.02); EST Glomerular Filtration Rate 85 mL/min (>60); Est Glom Filt Rate - Afr Amer 103 mL/min (>60); Estimated Creatinine Clearance 85.09 ml/min; Globulin 3.1 g/dL (2.2-4.2); Glucose 99 mg/dL (74-106); Potassium 3.6 mmol/L (3.5-5.1); Protein, Total 7.1 g/dL (6.4-8.2); Sodium Level 143 mmol/L (136-145)
[2020-01-14 21:59] LABS: Color, Urine Yellow (Yellow); Glucose, Dipstick Normal (Normal); Ketone-Dipstick Negative (Negative); Leukocyte Esterase-Dipstick Negative /ul (Negative); Nitrite-Dipstick Negative (Negative); Occult Blood-Urine Negative /ul (Negative); Protein-Dipstick Negative (Negative); Urine Bilirubin Dipstick Negative (Negative); Urine Clarity Clear (Clear); Urine Urobilinogen Normal (Normal)
[2020-01-14 22:06] LABS: Squamous Epithelial Cells - UA 0-5 SEEN /hpf (5-10)
[2020-01-14 22:07] LABS: Internal QC Validated? YES +Cl - CLEAR BKGD; Pregnancy, Urine Negative Negative
--- NOTE | 2020-01-14 23:04 | ED.DCSUM_ITS ---
History of Present Illness Chief Complaint: Abd Pain Informant: Patient Narrative: 29-year-old female with no significant past medical history presents with concern for right lower quadrant pain. States began today. States is intermittent. Aching in nature. Denies any nausea, vomiting, diarrhea, constipation. States the pain radiates into her right back. Denies any vaginal bleeding or discharge. She was seen by her primary care physician today who felt that she likely had ovarian cyst but if she had continued pain to return for CT scan to rule out appendicitis. Past Medical History - Allergies and Home Meds Allergies/Adverse Reactions: Allergies sulfamethoxazole [From Bactrim] Allergy (Mild, Verified 01/14/19 13:14) face swelling, itchy trimethoprim [From Bactrim] Allergy (Mild, Verified 01/14/19 13:14) face swelling, itchy latex Allergy (Verified 01/14/19 13:14) Hives metronidazole [From Flagyl] Allergy (Verified 01/14/19 13:14) Hives nickel Allergy (Verified 01/14/19 13:14) Hives Primary Care Physician: Misa Marino DO [Primary Care Provider] - Prior records reviewed: Yes Past Medical History: None Lives: With Family Smoking Status: Never smoker Alcohol: None Drugs: None Review of Systems General: Denies: Chills, Fever, Sweats Eyes: Denies: Visual changes - bilaterally, Diplopia ENT: Denies: Rhinorrhea, Sore throat Cardiovascular: Denies: Chest pain, Palpitations Respiratory: Denies: Dyspnea, Cough, Dyspnea on exertion Gastrointestinal: Reports: Abdominal pain. Denies: Nausea, Vomiting, Diarrhea, Melena, Hematochezia Genitourinary: Denies: Dysuria, Hematuria, Frequency Musculoskeletal: Denies: Back pain, Extremity Pain Skin: Denies: Rash, Wounds Neurological: Denies: Headache, Weakness, Numbness Physical Exam Vital Signs/Narrative: Vital Signs Temp Pulse Resp BP 01/14/20 20:07 96.6 F L 90 18 119/71 Inital Vital Signs reviewed: Yes General: Well nourished, Well developed, No Acute Distress Head: Normocephalic, Atraumatic Eyes: Perrl, EOMI ENT: Moist mucous membranes, No rhinorrhea Neck: Supple, Nontender Cardiovascular: Regular rate, Regular rhythm, No murmurs Respiratory: No distress, CTA bilaterally, Chest nontender Abdomen: Soft, Nondistended, Normal bowel sounds, - - Mild TTP in the RLQ. No rebound. Back: Nontender, Normal Inspection Extremities: Nontender, No edema Skin: Normal color, No rash Neurological: Alert, Oriented x3, Cranial nerves II-XII grossly intact, Normal Strength, Normal Sensation Psychological: Normal affect, Normal Mood Diagnostic/Tx/Re-eval Clinical Impression(s) from Imaging Studies Abdomen/Pelvis CT 01/14/20 21:08 IMPRESSION: Nonvisualization of the gallbladder which may be consistent with prior cholecystectomy. No evidence for acute appendicitis. Small right ovarian cyst and trace of fluid in the cul-de-sac possibly due to ovulation. Incompletely distended thick-walled bladder of uncertain clinical significance although may be consistent with cystitis. Clinical correlation recommended Electronically Signed: Erich Beach MD at 22:00 EST , Service support , Laboratory Data 01/14/20 01/14/20 01/14/20 21:08 21:08 21:25 WBC 7.6 RBC 4.63 Hgb 13.5 Hct 41.8 MCV 90.3 MCH 29.2 MCHC 32.3 RDW Std Deviation 41.1 RDW Coeff of Chanel 12.4 Plt Count 220 MPV 10.0 Immature Gran % (Auto) 0.400 Neut % (Auto) 65.5 Lymph % (Auto) 25.4 Hutchinson % (Auto) 6.9 Eos % (Auto) 1.3 Baso % (Auto) 0.5 Absolute Neuts (auto) 4.9 Absolute Lymphs (auto) 1.92 Nucleated RBC % 0 Sodium 143 Potassium 3.6 Chloride 106 Carbon Dioxide 30.0 Anion Gap 7 BUN 13 Creatinine 0.85 Estim Creat Clear Calc 85.09 Est GFR (MDRD) Af Amer 103 Est GFR (MDRD) Non-Af 85 BUN/Creatinine Ratio 15.3 Glucose 99 Calcium 9.2 Total Bilirubin 0.30 AST 13 L ALT 18 Alkaline Phosphatase 114 Total Protein 7.1 Albumin 4.0 Globulin 3.1 Albumin/Globulin Ratio 1.3 Urine Color Yellow Urine Clarity Clear Urine pH 6.0 Ur Specific [place] 1.020 Urine Protein Negative Urine Glucose (UA) Normal Urine Ketones Negative Urine Occult Blood Negative Urine Nitrite Negative Urine Bilirubin Negative Urine Urobilinogen Normal Ur Leukocyte Esterase Negative Urine RBC 0 SEEN Urine WBC 0 SEEN Ur Squamous Epith Cells 0-5 SEEN Urine Bacteria 0 SEEN Urine Mucus 0 SEEN Urine Test Negative - Medical Decision Making Patient appears well nontoxic. He is in pain medication at this time. Lab work within normal limits. CT of the abdomen pelvis shows an ovarian cyst and a small amount of fluid within the cul-de-sac consistent with ovulation. Patient will be given Toradol for some mild pain. Will be given Naprosyn for home. Asked to follow-up with [employer]. Patient agreeable and discharged home in stable condition. ED Disposition - Plan for ED Patient: Disposition: Home or Assisted Living Instructions: ED Cyst Ovarian Prescriptions: Naproxen [Naprosyn] 500 mg PO BID #14 tab Prescription Printed Referrals: Misa Marino DO [Primary Care Provider] - 2 Days
[2020-01-14] MEDS: Ketorolac 15 MG/ML Vial IV (23:22)
[2020-01-14 23:28] VITALS: BP 105/65; PULSE 78; RESP 16; O2SAT 98
== END 2020-01-14 23:28 | disposition home or self-care (01) ==
PROVIDERS: Emergency Provider Emergency Medicine; PCP Family Medicine
DX: N83.201 Unspecified ovarian cyst, right side (principal)
CPT/HCPCS: 74177; 80053; 81001; 81025; 85025; 96374; 99283; Q9967; A4216

== ENCOUNTER → 2020-01-17 17:24 | Outpatient (CLI) | payer MEDICAID, SELFPAY ==
[2020-01-17 09:02] VITALS: BMI 32.1
--- NOTE | 2020-01-17 17:25 | US_ITS ---
STUDY: ULTRASOUND OF THE FEMALE PELVIS - COMPLETE REASON FOR EXAM: Female, 29 years old. Right lower quadrant pain x4 days. Worsening pain. LMP: 12/31/2019. TECHNIQUE: Transabdominal and Transvaginal TECHNICAL QUALITY: Adequate. COMPARISON: CT of the abdomen and pelvis, 01/14/2020. Pelvic ultrasound, 02/19/2017. FINDINGS: The uterus is anteverted and is in a midline position. The uterus measures 9.0 x 5.7 x 4.4 cm. Normal uterine cervix. The endometrium measures 10 mm in thickness, and is hyperechoic. There is no demonstrated endometrial mass. There is no demonstrated myometrial mass. I.U.D. - The patient does not have an I.U.D. The right ovary is visualized. The right ovary measures 5.1 x 3.3 x 2.9 cm. There are multiple follicles of the right ovary with a dominant 2.6 x 2.3 x 1.8 cm cyst. There is no visualized right adnexal mass or complex lesion. There is normal arterial and normal venous vascularity. The left ovary is visualized. The left ovary measures 3.9 x 2.1 x 1.5 cm. There are multiple follicles of the left ovary without a dominant cyst. There is no visualized left adnexal mass or complex lesion. There is normal arterial and normal venous vascularity. There is mild fluid in the cul-de-sac. The pre void volume of the bladder was 413 ml. The urinary bladder appears grossly normal. Polycystic ovary disease: No. US/Transvaginal Non- IMPRESSION: 1. Normal appearing uterus. 2. Right ovarian cyst. 3. Normal left ovary. 4. Mild free fluid in the posterior cul-de-sac thought to be physiologic. Electronically Signed: Abraham Palomino DO at 19:06 EST Tel [phone], Service support ,
--- NOTE | 2020-01-17 17:25 | US_ITS ---
STUDY: ULTRASOUND OF THE FEMALE PELVIS - COMPLETE REASON FOR EXAM: Female, 29 years old. Right lower quadrant pain x4 days. Worsening pain. LMP: 12/31/2019. TECHNIQUE: Transabdominal and Transvaginal TECHNICAL QUALITY: Adequate. COMPARISON: CT of the abdomen and pelvis, 01/14/2020. Pelvic ultrasound, 02/19/2017. FINDINGS: The uterus is anteverted and is in a midline position. The uterus measures 9.0 x 5.7 x 4.4 cm. Normal uterine cervix. The endometrium measures 10 mm in thickness, and is hyperechoic. There is no demonstrated endometrial mass. There is no demonstrated myometrial mass. I.U.D. - The patient does not have an I.U.D. The right ovary is visualized. The right ovary measures 5.1 x 3.3 x 2.9 cm. There are multiple follicles of the right ovary with a dominant 2.6 x 2.3 x 1.8 cm cyst. There is no visualized right adnexal mass or complex lesion. There is normal arterial and normal venous vascularity. The left ovary is visualized. The left ovary measures 3.9 x 2.1 x 1.5 cm. There are multiple follicles of the left ovary without a dominant cyst. There is no visualized left adnexal mass or complex lesion. There is normal arterial and normal venous vascularity. There is mild fluid in the cul-de-sac. The pre void volume of the bladder was 413 ml. The urinary bladder appears grossly normal. Polycystic ovary disease: No. US/Pelvic (Non ) IMPRESSION: 1. Normal appearing uterus. 2. Right ovarian cyst. 3. Normal left ovary. 4. Mild free fluid in the posterior cul-de-sac thought to be physiologic. Electronically Signed: Abraham Palomino DO at 19:06 EST Tel [phone], Service support ,
== END ==
PROVIDERS: PCP Family Medicine; Referring Provider Nurse Practitioner Women's Health; Visit Provider Nurse Practitioner Women's Health
DX: N83.201 Unspecified ovarian cyst, right side (principal); R10.2 Pelvic and perineal pain
CPT/HCPCS: 76830; 76856; 87070; 87205

== ENCOUNTER → 2020-01-17 | Outpatient (CLI) | payer MEDICAID, SELFPAY ==
[2020-01-17 09:02] VITALS: BMI 32.1
== END | disposition home or self-care (01) ==
LOC: LABSPEC 13:48
PROVIDERS: PCP Family Medicine; Referring Provider Nurse Practitioner Women's Health; Visit Provider Nurse Practitioner Women's Health
DX: R10.2 Pelvic and perineal pain (principal)
CPT/HCPCS: 87070; 87205

== ENCOUNTER → 2020-06-22 09:30 | Outpatient (CLI) | payer OTHER, SELFPAY ==
[2020-02-11 08:07] VITALS: BMI 32.5
--- NOTE | 2020-06-22 09:34 | US_ITS ---
STUDY: RENAL ULTRASOUND - COMPLETE REASON FOR EXAM: Female, 29 years old. UTI/HEMATURIA TECHNIQUE: Ultrasound evaluation of the kidneys was performed with real-time and static white-scale imaging. COMPARISON: Comparison is made with prior CT scan of the abdomen and pelvis dated 01/14/2020. FINDINGS: RIGHT KIDNEY: Normal location of the right kidney, which is normal in size. The right kidney measures 11.7 cm x 5.5 cm x 3.5 cm. There is a normal cortex of the right kidney. The renal cortex measures 1.5 cm. There is no right renal mass or cyst. There are no right renal calculi. There is no right hydronephrosis. DISTAL RIGHT URETER: There is non-visualization of the distal right ureter. There is no demonstrated right ureterovesical junction calculus. There is no demonstrated right ureteral jet. LEFT KIDNEY: Normal location of the left kidney, which is normal in size. The left kidney measures 12.7 cm x 5.6 cm x 4.6 cm. There is a normal cortex of the left kidney. The renal cortex measures 1.3 cm. There is no left renal mass or cyst. There are no left renal calculi. There is no left hydronephrosis. DISTAL LEFT URETER: There is non-visualization of the distal left ureter. There is no demonstrated left ureterovesical junction calculus. There is no demonstrated left ureteral jet. BLADDER: The distended urinary bladder has a volume of 300 ml. There is a normal wall thickness of the distended urinary bladder. There is no demonstrated mass within the urinary bladder. There are no demonstrated bladder calculi. US/Kidney and Bladder IMPRESSION: Normal ultrasound of the kidneys and urinary bladder. Electronically Signed: Herson Greenwood MD at 15:32 EDT , Service support ,
== END ==
PROVIDERS: PCP Family Medicine; Visit Provider Urology
DX: N39.0 Urinary tract infection, site not specified (principal); R31.9 Hematuria, unspecified; N13.30 Unspecified hydronephrosis
CPT/HCPCS: 76770

== ENCOUNTER → 2020-07-10 10:07 | Outpatient (CLI) | payer OTHER, SELFPAY ==
[2020-02-11 08:07] VITALS: BMI 32.5
[2020-07-10 11:02] LABS: Absolute Lymphocyte Count 1.49 X10^3/uL (0.83-4.51); Absolute Neutrophil Count 3.3 X10^3/uL (2.0-7.7); Basophil# 0.03 X10^3/uL; Basophil% 0.6 % (0-1); Eosinophil# 0.16 X10^3/uL; Eosinophils% 2.9 % (0-5); Hematocrit 42.4 % (37-47); Hemoglobin 13.4 g/dL (12.0-15.0); Lymphocyte # 1.49 X10^3/ul (0.83-4.51); Lymphocyte % 27.4 % (19-41); Mean Corp Hgb Conc 31.6 g/dL (32-36); Mean Corpuscular Volume 88.5 fL (81-99); Mean Platelet Vol. 10.5 fl (6.2-12.0); Monocyte# 0.47 X10^3/uL; Monocyte% 8.7 % (0-10); NRBC Flagged by Analyzer 0 % (0-5); Neutrophil # 3.27 X10^3/uL (2.7-7.7); Neutrophil % 60.2 % (47-70); Platelet Count 248 K/mm3 (150-450); RBC Distribution Width CV 12.4 % (11.6-14.6); RBC Distribution Width SD 40.6 fl (35.1-43.9); Red Blood Count 4.79 M/mm3 (4.2-5.4); White Blood Count 5.4 K/mm3 (4.4-11.0)
[2020-07-10 11:08] LABS: Protein, Urine (Random) 16.3 mg/dL (<11.9); Protein:Creat Ratio 154 mg/g CRE (0-200)
[2020-07-10 11:37] LABS: ALB/GLOB Ratio 1.2 RATIO (0.9-2.4); AST(SGOT) 14 U/L (15-37); Alanine Aminotransfer ALT/SGPT 17 U/L (13-56); Albumin, Serum 3.8 g/dL (3.2-5.0); Alkaline Phosphatase 99 U/L (45-117); Anion Gap 6 (5-15); BUN 11 mg/dL (7-18); BUN/Creat Ratio 15.2 RATIO (10-20); Calcium,Total 8.8 mg/dL (8.5-10.1); Chloride 106 mmol/L (98-107); Creatinine, Serum 0.73 mg/dL (0.55-1.02); EST Glomerular Filtration Rate 101 mL/min (>60); Est Glom Filt Rate - Afr Amer 122 mL/min (>60); Globulin 3.3 g/dL (2.2-4.2); Glucose 75 mg/dL (74-106); Potassium 3.7 mmol/L (3.5-5.1); Protein, Total 7.1 g/dL (6.4-8.2); Sodium Level 141 mmol/L (136-145)
== END ==
PROVIDERS: PCP Family Medicine; Referring Provider Internal Medicine Rheumatology; Visit Provider Internal Medicine Rheumatology
DX: M06.4 Inflammatory polyarthropathy (principal); Z79.899 Other long term (current) drug therapy; R76.8 Other specified abnormal immunological findings in serum; R76.0 Raised antibody titer; K21.9 Gastro-esophageal reflux disease without esophagitis; E04.0 Nontoxic diffuse goiter; L30.9 Dermatitis, unspecified; F41.9 Anxiety disorder, unspecified
CPT/HCPCS: 36415; 80053; 82570; 84156; 85025